=== PATIENT | male | born 1955 | race Caucasian/White ===

== ENCOUNTER 2017-02-04 22:06 | Emergency (ER) | payer MEDICARE, OTHER ==
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
[~2017-02-04 22:06] MED LIST: ABILIFY PO; ADVIL200 M3 PO; ALBUTEROL MININEB INH; ALL DAY ALLERGY10 M3 PO; ALPRAZOLAM PO; ARIPIPRAZOLE2 MG PO; ATIVAN PO; ATIVAN0.5 M1 PO; AUGMENTIN PO; CENTRUM PO; CLONAZEPAM0.5 MG PO; COGENTIN; COLACE PO; COMBIVENT INH14.7 GM INH; COMBIVENT RESPIM4 GM IH; COMBIVENT U/D3 ML INH; CYMBALTA; CYMBALTA30 MG PO; DOC-Q-LACE100 MG PO; DULOXETINE HCL60 MG PO; FLEXERIL10 MG PO; FOLIC ACID PO; FOLIC ACID1 MG PO; GABAPENTIN600 MG PO; GABAPENTIN800 MG PO; GEODAN; GEODON20 MG PO; HALCION0.125 MG PO; HUMIBID DM1 TAB PO; HYDROCODON-ACE1 EAC4 PO; HYDROCODONE-APA1 T41 PO; HYDROCODONE-APA1 T54 PO; HYDROXYZINE HCL25 M1 PO; IBUPROFEN800 MG PO; KEFLEX250 M1 PO; KLONOPIN1 MG PO; LEVAQUIN PO; LIDODERM30 EA TOP; LISINOPRIL; LISINOPRIL-HCTZ1 T19 PO; LISINOPRIL-HCTZ1 T20 PO; LITHATE20 MG PO; LORTAB 10-5001 EACH PO; LORTAB 5/500 TA1 TA1 PO; LORTAB 7.5-5001 TAB PO; MARINOL5 MG PO; MEDROL DOSEPAK4 MG DOB; MILK OF MAGNESIA PO; MOBIC15 MG PO; MUCINEX DM ER1 EACH PO; NAPROSYN500 MG PO; NAPROXEN PO; NEURONTIN PO; NEURONTIN800 MG PO; NICOTINE TRANSD14 MG EXT; NICOTINE TRANSD21 MG TD; NO MEDICATIONS; NORCO 10/325 TA1 TAB; OXYCONTIN10 MG PO; PANTOPRAZOLE SO20 MG PO; PAXIL PO; PEGASYS; PEGASYS PO; PERCOCET 5-3251 TAB PO; PERCOCET PO; PHENERGAN PO; PLETAL100 M1 PO; PREDNISONE PO; PRISTIQ100 MG PO; PROAIR HFA8.5 GM IH; REQUIP0.25 MG PO; REQUIP0.5 MG PO; REVIA50 MG PO; ROPINIROLE HCL0.5 MG PO; SEROQUEL PO; SPIRIVA18 MCG PO; SYMBICORT IH; SYMBICORT INH; THIAMINE HCL100 MG PO; TRAZODONE PO; WELLBUTRIN; ZANTAC PO; ZESTORETIC 20/11 TAB PO; ZESTRIL5 MG PO; [UNRECOGNIZED DRUG - REMARK]
== END 2017-02-05 00:55 | disposition home or self-care (01) ==
LOC: CED 22:06
DX: S00.33XA Contusion of nose, initial encounter (principal); F31.9 Bipolar disorder, unspecified; Z86.73 Personal history of transient ischemic attack (TIA), and cerebral infarction without residual deficits; F17.210 Nicotine dependence, cigarettes, uncomplicated; Z91.040 Latex allergy status; Z88.8 Allergy status to other drugs, medicaments and biological substances; Y04.0XXA Assault by unarmed brawl or fight, initial encounter; Y92.410 Unspecified street and highway as the place of occurrence of the external cause; F10.10 Alcohol abuse, uncomplicated; Y90.9 Presence of alcohol in blood, level not specified
CPT/HCPCS: 70450; 99284

== ENCOUNTER 2017-04-10 20:15 | Emergency (ER) | payer MEDICARE, OTHER ==
[~2017-04-10] VITALS: Ht 170.2 cm; Wt 67.1 kg
--- NOTE | ~2017-04-10 | MR18 ---
[facility] A Service of [facility] RADIOLOGY TEXT RESULTS PATIENT: GUSTAVO BLAS LOCATION: [facility] : 54 UNIT #: [id number] AGE: [address]: Isma Duron DO SEX: M ORDER DR: [id number] [facility] [address] [place], [place] [address] [id number] E MR#: [id number] Acc #: [id number] NAME: GUSTAVO BALS : 1955 SEX: M STUDY DATE/TIME: 04/10/2017 22:28 UNIT: [facility] ROOM: STUDY DESCRIPTION: MR Brain Wo Contrast Attending Physician: Isma Duron D.O. Ordering Physician: Isma Duron D.O. Primary Care Physician: Primary Care Physician No MRI CENTER REPORT This report is preliminary unless electronic signature is present. EXAM MRI brain without contrast INDICATION Right-sided face and arm numbness today and with loss of balance and slurred speech. Previous history of infarct. PROCEDURE Multiplanar, multisequence MR imaging of the brain without contrast. COMPARISON 04/14/2016 FINDINGS Diffusion weighted imaging shows no evidence for restricted diffusion. There is no abnormal mass effect, extraaxial collection or hydrocephalus. Moderate chronic small vessel ischemic change. Encephalomalacia in the medial right temporal and occipital lobes. Study is motion degraded but intracranial flow voids appear to remain intact. There is chronic opacification of the left maxillary sinus. IMPRESSION 1. No acute findings. 2. Moderate chronic small vessel ischemic change as well as encephalomalacia in the medial right temporal and occipital lobes. 3. Chronic left maxillary sinus opacification. Dictated by... Bryson Gilmore M.D. THIS IS AN ELECTRONICALLY VERIFIED REPORT Bryson Gilmore M.D. at 04/11/2017 10:01 PM YAMILA/annie [facility] A Service of [facility] RADIOLOGY TEXT RESULTS PATIENT: GUSTAVO BLAS LOCATION: [facility] : 54 UNIT #: [id number] AGE: [address]: Isma Duron DO SEX: M ORDER DR: TD: 04/11/2017 09:58 JOB #: [id number] MRI CENTER REPORT Page 1 of 1 COPY
[2017-04-10 22:09] LABS: BASOPHIL# 0.1 X10e3 (0-0.3); BASOPHIL% 1.4 % (0-2.5); EOSINOPHIL# 0.4 X10e3 (0-0.7); EOSINOPHIL% 5.1 % (0.0-7.0); HEMATOCRIT 38.7 % (38.0-50.0); HEMOGLOBIN 12.7 gm/dL (13.0-16.0); LYMPHOCYTE# 2.8 X10e3 (1.0-3.5); LYMPHOCYTE% 34.2 % (17.0-45.0); MEAN CELL VOLUME 98.4 FL (83-96); MEAN CORPUSCULAR HEMOGLOBIN 32.2 PG (28-34); MEAN CORPUSCULAR HGB CONC 32.7 g/dL (30-36); MEAN PLATELET VOLUME 8.8 FL (6.5-11.5); MONOCYTE# 1.1 X10e3 (0-1.0); MONOCYTE% 13.9 % (3.0-12.0); NEUTROPHIL# 3.7 X10e3 (1.5-7.1); NEUTROPHIL% 45.4 % (40-75); PLATELET COUNT 229 X10e3 (140-420); RED BLOOD COUNT 3.93 X10e (3.90-5.60); WHITE BLOOD COUNT 8.1 X10e3 (4.0-10.5)
[2017-04-10 22:10] LABS: DIFF IND NO
[2017-04-10 22:16] LABS: POC - CKMB 1.9 ng/mL (0.0-7.9); POC - TROPONIN <0.05 ng/mL (<=0.05)
[2017-04-10 22:25] LABS: INR 1.1; PARTIAL THROMBOPLASTIN TIME 26.8 SECONDS (23.5-31.3); PROTHROMBIN TIME (PATIENT) 11.4 SECONDS (10.0-11.7)
[2017-04-10 22:31] LABS: ALBUMIN SERUM 3.7 g/dL (3.5-5.0); ALCOHOL BLOOD 140 mg/dL ([, 0]); ALKALINE PHOSPHATASE 93 U/L (32-92); ALT (SGPT) 146 U/L (10-40); AST (SGOT) 156 U/L (10-42); BILIRUBIN, DIRECT 0.2 mg/dL (0.0-0.2); BILIRUBIN,INDIRECT 0.6 mg/dL (0.0-0.9); BILIRUBIN,TOTAL 0.8 mg/dL (0.2-2.0); BLOOD UREA NITROGEN 9 mg/dL (9-23); CALCIUM SERUM 8.8 mg/dL (8.4-10.2); CARBON DIOXIDE 22 mmol/L (22-31); CHLORIDE 107 mmol/L (100-111); CREATININE SERUM 0.6 mg/dL (0.6-1.4); GLUCOSE FASTING 85 mg/dL (70-110); POTASSIUM 3.5 mmol/L (3.5-5.1); PROTEIN TOTAL SERUM 7.8 g/dL (6.0-8.3); SALICYLATE <4.0 mg/dL; SODIUM 137 mmol/L (135-145)
[2017-04-10 22:35] LABS: ACETAMINOPHEN <10 ug/mL
[2017-04-11 01:10] LABS: AMPHETAMINE POS (NEG); BARBITURATES NEG (NEG); BENZODIAZEPINES NEG (NEG); COCAINE NEG (NEG); MARIJUANA POS (NEG); OPIATES NEG (NEG); TRICYCLIC ANTIDEPRESSANTS NEG (NEG); U METHADONE NEG (NEG)
[2017-04-11 01:10] LABS: POC - CKMB 1.5 ng/mL (0.0-7.9); POC - TROPONIN <0.05 ng/mL (<=0.05)
[2017-06-21] MEDS ORDERED: BP MED (00:47)
== END 2017-04-11 05:07 ==
LOC: CED 20:15
PROVIDERS: Emergency Medicine
DX: F10.129 Alcohol abuse with intoxication, unspecified (principal); F15.90 Other stimulant use, unspecified, uncomplicated; J44.9 Chronic obstructive pulmonary disease, unspecified; I73.9 Peripheral vascular disease, unspecified; Z91.040 Latex allergy status; Z88.0 Allergy status to penicillin
CPT/HCPCS: 36415; 70551; 80048; 80076; 80307; 82553; 84484; 85025; 85610; 85730; 99285; G0480

== ENCOUNTER 2017-04-11 02:00 | Inpatient (IN) | payer MEDICARE, OTHER ==
[~2017-04-11] VITALS: Ht 170.2 cm; Wt 71.7 kg
--- NOTE | ~2017-04-11 | DS ---
Unit #: [id number] #: [id number] Patient: GUSTAVO BLAS [id number] [facility] [address] [place] [address] [id number] I MR#: [id number] NAME: GUSTAVO BLAS ROOM: 84 Age: 62 Sex: M Admission Date: 04/11/2017 : 1955 Discharge Date: 04/16/2017 Attending Physician: Eulogio Pittman M.D. Primary Care Physician: Primary Care Physician No DISCHARGE SUMMARY REASON FOR ADMISSION The patient is a 62-year-old white male, admitted to the [facility] unit after he presented to a local emergency room claiming to be suicidal. HOSPITAL COURSE The patient was admitted to the [facility] unit and soon became clear that the patient's threats of suicide related to his state of intoxication noted on admission to the emergency room with the patient having mislead this physician regarding the degree of alcohol use which take place prior to his admission to the hospital. The patient had an uneventful discharge and no psychotropic medications were initiated during his stay in the hospital. By 04/17/2017, the patient's detox was complete. He voiced no suicidal or homicidal ideation and denied any symptoms of confusion which he had claimed earlier. Discharge was ordered. FINAL DIAGNOSES Alcohol use disorder, hypertension, status post cerebrovascular accident. DISPOSITION ON DISCHARGE The patient is discharged on the following medications: Norvasc 5 mg daily for hypertension, Lopressor 25 mg b.i.d. for hypertension. DISCHARGE INSTRUCTIONS No dietary or physical restrictions were placed upon the patient at the time of discharge. FOLLOWUP Followup will take place through the auspices of community mental health and chemical dependency treatment resources. PROGNOSIS The patient's prognosis is considered fair. Dictated by... Eulogio Pittman M.D. CB/agnes TD: 04/16/2017 15:11 JOB #: [id number] Unit #: [id number] #: [id number] Patient: GUSTAVO BLAS DISCHARGE SUMMARY Page 1 of 1 X Eulogio Pittman MD DISCHARGE SUMMARY
--- NOTE | ~2017-04-11 | PN ---
Unit #: [id number] #: [id number] Patient: GUSTAVO BLAS [id number] [facility] [address] [place] [address] [id number] I MR#: [id number] NAME: GUSTAVO BLAS ROOM: P184 Age: 62 Sex: M Admission Date: 04/11/2017 : 1955 Attending Physician: Eulogio Pittman M.D. Admitting Physician: Eulogio Pittman M.D. Primary Care Physician: Primary Care Physician Franca JAQUEZ PROGRESS NOTES DATE 04/13/2017 DISCUSSION The patient seems more unsteady today and is complaining of increasing confusion. We will continue to watch to assure that the patient is not having ongoing symptoms of alcohol withdrawal and possible development of delirium tremens. Dictated by... Eulogio Pittman M.D. CB/fior TD: 04/13/2017 19:59 JOB #: [id number] [facility] PROGRESS NOTES Page 1 of 1 X Eulogio Pittman MD PROGRESS NOTE
--- NOTE | ~2017-04-11 | PA ---
Unit #: [id number] #: [id number] Patient: GUSTAVO BLAS [id number] [facility] [address] [place] [address] [id number] I MR#: [id number] NAME: GUSTAVO BLAS ROOM: P184 Age: 62 Sex: M Admission Date: 04/11/2017 : 1955 Date of Assessment: 04/11/2017 Attending Physician: Eulogio Pittman M.D. Admitting Physician: Eulogio Pittman M.D. Primary Care Physician: Primary Care Physician No PSYCHIATRIC ASSESSMENT IDENTIFYING INFORMATION The patient is a 62-year-old white male admitted to the [address] [place] [address] after he had presented to the local emergency room voicing suicidal ideation. CHIEF COMPLAINT "I thought I was having a stroke." INFORMANT Patient, reliability is fair. HISTORY OF PRESENT ILLNESS The patient is a 62-year-old white male admitted to the [address] [place] [address]. The patient reported to a local hospital stay last evening complaining of severe anxiety and the fear that he was having stroke. The patient claims to this physician that he has recently relapsed on alcohol but states that he had "just 1 wine cooler" yesterday. This statement is being somewhat belied by the fact that the patient's blood alcohol on admission was 0.140. Additionally, the patient's drug screen is positive for amphetamines and cannabis. The patient states that he is living alone. He is presently on no psychotropic medications. He is strongly denying suicidal or homicidal ideation and denies any psychotic symptoms. For more complete history of present illness, please refer to multiple previously dictated notes. PAST PSYCHIATRIC HISTORY Reviewed, no changes. PAST MEDICAL HISTORY Reviewed, no changes. MEDICATION(S) Norvasc, Metoprolol. ALLERGIES Latex, lidocaine. FAMILY HISTORY Reviewed, no changes. SOCIAL HISTORY Reviewed, no changes. MENTAL STATUS EXAMINATION Examination at this time reveals the patient to be a well-developed Unit #: [id number] #: [id number] Patient: GUSTAVO BLAS well-nourished white male appearing stated age. She is in no apparent physical distress at the time of the examination. He is awake, alert, and oriented in all spheres. His mood is euthymic, his affect congruent. Speech is generally well-coherent. There are no gross deficits in memory or cognition noted. Intelligence is judged to be in the average range based on fund of knowledge. The patient is cooperative throughout the interview. He is currently denying suicidal or homicidal ideation or psychotic features. Judgment and insight appear to be reasonably intact. ASSETS AND LIABILITIES The patient's assets are to be assessed. Liabilities: Lack of resources. DIAGNOSTIC IMPRESSION 1. Alcohol use disorder. 2. Methamphetamine use disorder. 3. Cannabis use disorder. 4. Hypertension. TREATMENT PLAN The patient remains hospitalized for safety and stabilization. Routine detoxification protocol for alcohol has been initiated, and suicide precautions remain in place. We will watch the patient for 48 to 72 hours to assure that his suicidal ideation has subsided, and that he is exhibiting no signs of substance withdrawal. ESTIMATED LENGTH OF STAY 3 days. Dictated by... Eulogio Pittman M.D. EDWARD/brian TD: 04/11/2017 14:23 JOB #: [id number] PSYCHIATRIC ASSESSMENT Page 1 of 1 X Eulogio Pittman MD X PSYCHIATRIC ASSESSMENT
--- NOTE | ~2017-04-11 | HP ---
Unit #: [id number] #: [id number] Patient: GUSTAVO BLAS [id number] [place] [address] [id number] I MR#: [id number] NAME: GUSTAVO BLAS. ROOM: P184 Age: 62 Sex: M Admission Date: 04/11/2017 : 1955 Attending Physician: Eulogio Pittman M.D. Admitting Physician: Eulogio Pittman M.D. Primary Care Physician: Primary Care Physician No HISTORY AND PHYSICAL HISTORY OF PRESENT ILLNESS Gustavo is a 62-year-old male admitted on 04/11/2017 to [facility] for detox from alcohol, amphetamines and anxiety. PAST MEDICAL HISTORY 1. COPD. 2. Hepatitis. 3. Chronic back pain. 4. GERD. 5. Hypertension. 6. History of stroke. PAST SURGICAL HISTORY 1. Multiple back surgeries. 2. An I and D of his left great toe. ALLERGIES Latex and lidocaine. SOCIAL HISTORY He is currently single and living alone. He smokes 1 pack of cigarettes daily. Binge alcohol use and denies any illegal drug use. However, his tox was positive for amphetamines and marijuana. FAMILY HISTORY Noncontributory. REVIEW OF SYSTEMS CONSTITUTIONAL: No fever or chills. HEENT: Denies any sore throat, ear pain or runny nose. CARDIOVASCULAR: Denies chest pain, irregular heart rhythm or palpitations. CHEST: Denies shortness of breath or cough. No hemoptysis. GASTROINTESTINAL: Denies nausea, vomiting, diarrhea or chronic constipation. ENDOCRINE: Denies history of increased thirst or urination. No recent significant weight loss or gain. GENITOURINARY: Denies dysuria, frequency, or hematuria. SKIN: Denies any rashes. HEMATOLOGIC: Denies history of increased bleeding or bruising. MUSCULOSKELETAL: Denies any hot, swollen joints. No generalized muscle pain. NEUROLOGIC: Denies problems with vision or speech. No frequent, severe headaches. No numbness, tingling or weakness in any extremities. Denies Unit #: [id number] #: [id number] Patient: GUSTAVO BLSA loss of bladder or bowel control. CURRENT MEDICATIONS 1. Norvasc. 2. Toprol. PHYSICAL EXAMINATION GENERAL: Alert, oriented, in no acute distress. VITAL SIGNS: Blood pressure 113/79, heart rate 87, respirations 16, temperature 97.9. HEIGHT: 5 feet 7. WEIGHT: 158 pounds. SKIN: Warm and dry without rash or lesion. HEENT: Normocephalic. TMs not viewed. Oral and nasal passages clear. Conjunctivae clear. PERRLA. EOMs intact. NECK: Supple without lymphadenopathy or thyromegaly. HEART: Regular rate and rhythm without murmur. LUNGS: Clear. ABDOMEN: Soft, nontender, without masses or hepatosplenomegaly. : Not done. EXTREMITIES: No evidence of cyanosis, clubbing or edema. Moves all without focal deficit. NEUROLOGICAL: Grossly within normal limits. Cranial Nerves: II: Visual bartholomew are intact. III, IV AND : Extraocular movements are intact. Pupils are equal, round and reactive to light. V: Facial sensation is grossly normal. VII: Facial movements and expression are normal. VIII: Auditory acuity grossly intact. IX, X: Uvula is midline. Phonation is normal. XI: Patient shrugs shoulders and turns head normally. XII: Tongue protrudes in the midline. Sensory and Motor Function: Sensory and motor sensation is grossly normal. Motor: moves all extremities well. Coordination: Gait is normal. Deep Tendon Reflexes: Intact. IMPRESSION 1. Psychiatric admission. 2. Chronic back pain. 3. Chronic obstructive pulmonary disease. 4. Hepatitis C. 5. Hypertension. 6. Stroke. 7. Gastroesophageal reflux disease. RECOMMENDATIONS PSYCHIATRIC: Per psychiatrist. MEDICAL: No contraindication to participate in facility's activities. MEDICAL PROGNOSIS Good. MEDICAL CONDITION Stable. Dictated by... Unit #: [id number] #: [id number] Patient: GUSTAVO BLAS A.P.R.N. MJW/fior TD: 04/11/2017 22:16 JOB #: [id number] HISTORY AND PHYSICAL Page 1 of 1 X CHRIS HENDRIX APRN X HISTORY AND PHYSICAL
--- NOTE | ~2017-04-11 | PN ---
Unit #: [id number] #: [id number] Patient: GUSTAVO BLAS [id number] [facility] [address] [place] [address] [id number] I MR#: [id number] NAME: GUSTAVO BLAS ROOM: 84 Age: 62 Sex: M Admission Date: 04/11/2017 : 1955 Attending Physician: Eulogio Pittman M.D. Admitting Physician: Eulogio Pittman M.D. Primary Care Physician: Primary Care Physician Franca JAQUEZ PROGRESS NOTES DATE 04/14/2017 DISCUSSION The patient is abed, resting comfortably today. His detox is essentially complete, and we will look for discharge to take place in the next couple of days. Dictated by... Eulogio Pittman M.D. CB/bzg TD: 04/14/2017 14:39 JOB #: [id number] [facility] PROGRESS NOTES Page 1 of 1 X Eulogio Pittman MD X PROGRESS NOTE
--- NOTE | ~2017-04-11 | PN ---
Unit #: [id number] #: [id number] Patient: GUSTAVO BLAS [id number] [facility] [address] [place] [address] [id number] I MR#: [id number] NAME: GUSTAVO BLAS ROOM: 84 Age: 62 Sex: M Admission Date: 04/11/2017 : 1955 Attending Physician: Eulogio Pittman M.D. Admitting Physician: Eulogio Pittman M.D. Primary Care Physician: Primary Care Physician Franca JAQUEZ PROGRESS NOTES DATE 04/12/2017 DISCUSSION The patient's detox continues uneventfully and he offers no new complaints today. Should he sustain progress, discharge should take place as early as tomorrow provided the patient is not exhibiting any signs or symptoms of alcohol withdrawal at that time. Dictated by... Eulogio Pittman M.D. CB/fior TD: 04/12/2017 15:27 JOB #: [id number] [facility] PROGRESS NOTES Page 1 of 1 X Eulogio Pittman MD PROGRESS NOTE
--- NOTE | ~2017-04-11 | PN ---
Unit #: [id number] #: [id number] Patient: GUSTAVO BLAS [id number] [facility] [address] [place] [address] [id number] MR#: [id number] NAME: GUSTAVO BLAS ROOM: P184 Age: 62 Sex: M Admission Date: 04/11/2017 : 1955 Attending Physician: Eulogio Pittman M.D. Admitting Physician: Eulogio Pittman M.D. Primary Care Physician: Primary Care Physician Franca JAQUEZ PROGRESS NOTES DATE 04/15/2017 DISCUSSION The patient continues to complain of "confusion". I have spoken with the patient regarding the importance of abstinence from alcohol if he wishes for the symptom to resolve and I have told him to expect a.m. discharge. Dictated by... Eulogio Pittman M.D. CB/ness TD: 04/16/2017 01:28 JOB #: [id number] [facility] PROGRESS NOTES Page 1 of 1 X Eulogio Pittman MD PROGRESS NOTE
[2017-04-12 09:42] LABS: BASOPHIL# 0.1 X10e3 (0-0.3); BASOPHIL% 1.2 % (0-2.5); EOSINOPHIL# 0.3 X10e3 (0-0.7); EOSINOPHIL% 4.4 % (0.0-7.0); HEMATOCRIT 39.4 % (38.0-50.0); HEMOGLOBIN 12.9 gm/dL (13.0-16.0); LYMPHOCYTE# 1.9 X10e3 (1.0-3.5); LYMPHOCYTE% 26.6 % (17.0-45.0); MEAN CELL VOLUME 99.2 FL (83-96); MEAN CORPUSCULAR HEMOGLOBIN 32.5 PG (28-34); MEAN CORPUSCULAR HGB CONC 32.7 g/dL (30-36); MEAN PLATELET VOLUME 9.8 FL (6.5-11.5); MONOCYTE# 1.1 X10e3 (0-1.0); MONOCYTE% 14.9 % (3.0-12.0); NEUTROPHIL# 3.7 X10e3 (1.5-7.1); NEUTROPHIL% 52.9 % (40-75); PLATELET COUNT 220 X10e3 (140-420); RED BLOOD COUNT 3.97 X10e (3.90-5.60); RED CELL DISTRIBUTION WIDTH 14.8 % (11.0-15.5); WHITE BLOOD COUNT 7.1 X10e3 (4.0-10.5)
[2017-04-12 09:54] LABS: DIFF IND NO
[2017-04-12 10:03] LABS: ALBUMIN SERUM 3.1 g/dL (3.5-5.0); BILIRUBIN,TOTAL 0.9 mg/dL (0.2-2.0); BUN/CREATININE RATIO 18.33; CREATININE SERUM 0.6 mg/dL (0.6-1.4); POTASSIUM 4.2 mmol/L (3.5-5.1); PROTEIN TOTAL SERUM 6.6 g/dL (6.0-8.3)
[2017-04-13 09:50] LABS: URINE APPEARANCE CLEAR; URINE BILIRUBIN NEG (NEG); URINE BLOOD NEG (NEG); URINE COLOR YELLOW; URINE GLUCOSE NEG (NEG); URINE KETONE NEG (NEG); URINE LEUKOCYTE ESTERASE NEG (NEG); URINE NITRATE NEG (NEG); URINE PH 7.5 (5-8); URINE PROTEIN NEG (NEG)
[2017-04-13 11:20] LABS: AMPHETAMINE NEG (NEG); BARBITURATES NEG (NEG); BENZODIAZEPINES NEG (NEG); COCAINE NEG (NEG); MARIJUANA NEG (NEG); OPIATES NEG (NEG); TRICYCLIC ANTIDEPRESSANTS NEG (NEG); U METHADONE NEG (NEG)
[2017-06-21] MEDS ORDERED: BP MED (00:47)
== END 2017-04-16 15:40 | DRG 897 ==
LOC: P1E 05:26
PROVIDERS: Specialist
PROC: HZ2ZZZZ Detoxification Services for Substance Abuse Treatment (ICD-10-PCS; principal; 2017-04-11)
DX: F10.20 Alcohol dependence, uncomplicated (principal); R45.851 Suicidal ideations; F15.20 Other stimulant dependence, uncomplicated; I10 Essential (primary) hypertension; F12.20 Cannabis dependence, uncomplicated; F17.210 Nicotine dependence, cigarettes, uncomplicated; B19.20 Unspecified viral hepatitis C without hepatic coma; K21.9 Gastro-esophageal reflux disease without esophagitis; Z86.73 Personal history of transient ischemic attack (TIA), and cerebral infarction without residual deficits
CPT/HCPCS: 80053; 80307; 81003; 85025; 86592

== ENCOUNTER 2017-05-05 19:35 | Emergency (ER) | payer MEDICARE, OTHER ==
[~2017-05-05] VITALS: Ht 170.2 cm; Wt 68.0 kg
--- NOTE | ~2017-05-05 | CR150 ---
[facility] A Service of [facility] RADIOLOGY TEXT RESULTS PATIENT: GUSTAVO BLAS LOCATION: [facility] : 54 UNIT #: [id number] AGE: [address]: Lawrence Herndon MD SEX: M ORDER DR: [id number] [facility] [address] [place], [place] [address] [id number] E MR#: [id number] #: [id number] NAME: GUSTAVO BLAS : 1955 SEX: M STUDY DATE/TIME: 05/05/2017 2203 UNIT: [facility] ROOM: STUDY DESCRIPTION: CR Hip Min 2 Views Lt Attending Physician: Lawrence Herndon M.D. Ordering Physician: Bryson Melendez M.D. Primary Care Physician: No Primary Care Physician MEDICAL IMAGING REPORT This report is preliminary unless electronic signature is present EXAM Left hip and pelvis, 05/05 at 2203. INDICATION Left hip pain after a fall today. Hip surgery 3 weeks ago. FINDINGS AP pelvis was obtained in addition to 2 views of the left hip. Comparison made with pelvis film from 04/23/2017. Again seen are changes of lumbosacral spinal fusion. Patient has a left hip arthroplasty. Skin gogo remain in place on the left side. No fracture or malalignment is identified. Incidental note is made of atherosclerotic disease. IMPRESSION No acute abnormalities. Satisfactory appearance of the left hip arthroplasty. Dictated by... Gerald العراقي Jr., M.D. THIS IS AN ELECTRONICALLY VERIFIED REPORT Gerald العراقي Jr., M.D. at 05/07/2017 3:11 AM PAIGE/basilia TD: 05/06/2017 19:35 JOB #: [id number] MEDICAL IMAGING REPORT Page 1 of 1 COPY
[2017-06-21] MEDS ORDERED: BP MED (00:47)
== END 2017-05-06 11:10 ==
LOC: CED 19:35
DX: S70.02XA Contusion of left hip, initial encounter (principal); F10.129 Alcohol abuse with intoxication, unspecified; R45.851 Suicidal ideations; I25.2 Old myocardial infarction; F31.9 Bipolar disorder, unspecified; F17.210 Nicotine dependence, cigarettes, uncomplicated; X58.XXXA Exposure to other specified factors, initial encounter; Y92.69 Other specified industrial and construction area as the place of occurrence of the external cause
CPT/HCPCS: 73502; 99284

== ENCOUNTER 2017-05-06 01:00 | Inpatient (IN) | payer MEDICARE, OTHER ==
[~2017-05-06] VITALS: Ht 170.2 cm; Wt 72.6 kg
--- NOTE | ~2017-05-06 | CO ---
Unit #: [id number] #: [id number] Patient: GUSTAVO BLAS [id number] [facility] [address] [place] [address] [id number] I MR#: [id number] NAME: GUSTAVO BLAS ROOM: P201 Age: 62 Sex: M Admission Date: 05/06/2017 : 1955 Attending Physician: Eulogio Pittman M.D. Primary Care Physician: Primary Care Physician No Consultation Date: 05/06/2017 CONSULTATION REPORT ORDERING PROVIDER Dr. Pittman. REASON FOR CONSULTATION Left hip replacement and rash. SUBJECTIVE The patient reports that about 10 days ago he had a left hip replacement by Dr. Moreland. He was discharged home with a bandage that he has not removed. He reports that there are gogo underneath his bandage. He did report a fall several days ago that brought him to the hospital. He was intoxicated at the time of admission. His hip was x-rayed and noted to be within normal limits. He also has a rash on the left side of the body, he is unsure how it got there. He denies any new soaps or detergents. He has not been sleeping outside. OBJECTIVE SKIN: A maculopapular erythematous rash noted on the left side of the patient's back. Central spots negative. There is a bug bite. Also noted on the lateral aspect of the left hip is an intact dressing. The dressing was not removed for examination. ASSESSMENT 1. Left hip replacement. 2. Rash. PLAN Plan is to start the patient on steroid therapy along with lower doses of naproxen due to his hepatitis C. We will also have him follow up with his orthopedic doctor in the next 2 to 3 days. Dictated by... Lester Dela Cruz/agnes TD: 05/07/2017 15:23 JOB #: [id number] Unit #: [id number] #: [id number] Patient: GUSTAVO BLAS CONSULTATION REPORT Page 1 of 1 X MERLENE RAMIRES APRN CONSULTATION REPORT
--- NOTE | ~2017-05-06 | PN ---
Unit #: [id number] #: [id number] Patient: GUSTAVO BLAS [id number] [facility] [address] [place] [address] [id number] I MR#: [id number] NAME: GUSTAVO BLAS ROOM: P201 Age: 62 Sex: M Admission Date: 05/06/2017 : 1955 Attending Physician: Eulogio Pittman M.D. Admitting Physician: Eulogio Pittman M.D. Primary Care Physician: Primary Care Physician Franca JAQUEZ PROGRESS NOTES DATE 05/08/2017 DISCUSSION The patient is active in the therapeutic milieu. He is requesting "something for sleep." He is also complaining of suicidal ideation, but I have explained to the patient today his ongoing seeming continuous use of alcohol precludes initiation of any antidepressant or other medications at least at this point. Dictated by... Eulogio Pittman M.D. CB/brian TD: 05/08/2017 13:54 JOB #: [id number] [facility] PROGRESS NOTES Page 1 of 1 X Eulogio Pittman MD PROGRESS NOTE
--- NOTE | ~2017-05-06 | DS ---
Unit #: [id number] #: [id number] Patient: GUSTAVO BLAS [id number] [facility] [address] [place] [address] [id number] I MR#: [id number] NAME: GUSTAVO BLAS. ROOM: P201 Age: 62 Sex: M Admission Date: 05/06/2017 : 1955 Discharge Date: 05/09/2017 Attending Physician: Eulogio Pittman M.D. Primary Care Physician: Primary Care Physician No DISCHARGE SUMMARY REASON FOR ADMISSION The patient is a 62-year-old white male, admitted with a recent relapse of alcohol use. HOSPITAL COURSE The patient was admitted to the [address] [place] [address] unit and placed on suicide precautions. He was initially prescribed Naprosyn for postoperative hip pain. This was switched to ibuprofen by the nurse practitioner later on. The patient continued to complain of severe pain in his hip. He exhibited no signs or symptoms of withdrawal and requested discharge from this facility on 05/09/2017. It was so ordered. FINAL DIAGNOSES Alcohol use disorder; dysthymic disorder; hypertension; status post hip replacement. DISPOSITION ON DISCHARGE The patient is discharged on the following medications: Medrol Dosepak daily for tapered steroid dose, Norvasc 5 mg daily for hypertension, Lopressor 25 mg daily for hypertension. DISCHARGE INSTRUCTIONS No dietary or physical restrictions were placed upon the patient at the time of discharge. FOLLOWUP Followup will take place through the auspices of community mental health resources. Dictated by... Eulogio Pittman M.D. CB/franciscol TD: 05/09/2017 13:43 JOB #: [id number] Unit #: [id number] #: [id number] Patient: GUSTAVO BLAS DISCHARGE SUMMARY Page 1 of 1 X Eulogio Pittman MD X DISCHARGE SUMMARY
--- NOTE | ~2017-05-06 | HP ---
Unit #: [id number] #: [id number] Patient: GUSTAVO BLAS [id number] [facility] [address] [place] [address] [id number] I MR#: [id number] NAME: GUSTAVO BLAS ROOM: P201 Age: 62 Sex: M Admission Date: 05/06/2017 : 1955 Attending Physician: Eulogio Pittman M.D. Admitting Physician: Eulogio Pittman M.D. Primary Care Physician: Primary Care Physician No HISTORY AND PHYSICAL HISTORY OF PRESENT ILLNESS The patient is a 62-year-old male, admitted to [address] [place] [address] on 05/06/2017 to detox from alcohol and for suicidal ideations. The patient had a recent admission on 04/11/2017 where a complete history and physical was done. That history has been reviewed, two changes need to be made, the patient had a recent hip replacement about ten days ago on his left hip and he also has a rash on his back. Otherwise, no changes need to be made. Dictated by... Lester Dela Cruz/muriel TD: 05/07/2017 09:52 JOB #: [id number] HISTORY AND PHYSICAL Page 1 of 1 X MERLENE RAMIRES APRN X HISTORY AND PHYSICAL
--- NOTE | ~2017-05-06 | PA ---
Unit #: [id number] #: [id number] Patient: GUSTAVO BLAS [id number] [facility] [address] [place] [address] [id number] MR#: [id number] NAME: GUSTAVO BLAS. ROOM: P201 Age: 62 Sex: M Admission Date: 05/06/2017 : 1955 Date of Assessment: 05/07/2017 Attending Physician: Eulogio Pittman M.D. Admitting Physician: Eulogio Pittman M.D. Primary Care Physician: Primary Care Physician No PSYCHIATRIC ASSESSMENT IDENTIFYING INFORMATION The patient is a 62-year-old white male admitted with a recent relapse of alcohol use. CHIEF COMPLAINT None given. INFORMANT Patient, reliability is fair. HISTORY OF PRESENT ILLNESS The patient is a 62-year-old white male well-known to this physician. He was last discharged from this facility on 04/16/2017. Per the patient's report he recently suffered a fall fracturing his hip necessitating hip replacement. He is now ambulating with a walker. He states that he did spend "three or four days at [facility]" following his discharge from [facility] where his hip replacement took place. The patient reports that after arriving at home following discharge he began drinking heavily once again and therefore came to this facility. He is currently only taking medications for hypertension and is on no prescribed psychotropic medication. He was prescribed hydrocodone post operatively. PAST PSYCHIATRIC HISTORY Reviewed no changes. PAST MEDICAL HISTORY Reviewed, no changes. MEDICATION(S) Norvasc, Metoprolol, hydrocodone. ALLERGIES Latex. FAMILY HISTORY Reviewed, no changes. SOCIAL HISTORY Reviewed, no changes. MENTAL STATUS EXAMINATION Examination at this time reveals the patient to be a well-developed well-nourished white male appearing stated age. She is walking with aid Unit #: [id number] #: [id number] Patient: GUSTAVO BLAS of a walker. He is awake, alert, and oriented in all spheres. His mood is mildly dysphoric. His affect congruent. Speech is generally well-coherent. There are no gross deficits in memory or cognition noted. Intelligence is judged to be in the average range based on fund of knowledge. The patient is cooperative throughout the interview. He is currently reporting positive suicidal. He denies homicidal ideation. He denies any psychotic symptoms. His judgment and insight appear to be at baseline. ASSETS AND LIABILITIES ASSETS: To be assessed. LIABILITIES: Lack of resources. DIAGNOSTIC IMPRESSION 1. Alcohol use disorder. 2. Dysthymic disorder. 3. Hypertension 4. Status post hip replacement. TREATMENT PLAN The patient remains hospitalized for safety and stabilization. Given his extensive substance abuse history I have discontinued hydrocodone and we will instead order the patient use non-steroidal anti-inflammatories for pain management. A routine detoxification protocol is in place. The patient will participate in appropriate ayala and milieu activities with an estimate length of stay in the hospital three to five days. Dictated by... Eulogio Pittman M.D. EDWARD/ness TD: 05/07/2017 20:49 JOB #: [id number] PSYCHIATRIC ASSESSMENT Page 1 of 1 X Eulogio Pittman MD X PSYCHIATRIC ASSESSMENT
[2017-05-07 09:43] LABS: BASOPHIL# 0.1 X10e3 (0-0.3); BASOPHIL% 0.6 % (0-2.5); EOSINOPHIL% 0.3 % (0.0-7.0); HEMATOCRIT 37.7 % (38.0-50.0); HEMOGLOBIN 12.7 gm/dL (13.0-16.0); LYMPHOCYTE# 1.4 X10e3 (1.0-3.5); LYMPHOCYTE% 11.5 % (17.0-45.0); MEAN CELL VOLUME 96.6 FL (83-96); MEAN CORPUSCULAR HEMOGLOBIN 32.6 PG (28-34); MEAN CORPUSCULAR HGB CONC 33.7 g/dL (30-36); MEAN PLATELET VOLUME 8.7 FL (6.5-11.5); MONOCYTE# 0.3 X10e3 (0-1.0); MONOCYTE% 2.1 % (3.0-12.0); NEUTROPHIL# 10.3 X10e3 (1.5-7.1); NEUTROPHIL% 85.5 % (40-75); PLATELET COUNT 376 X10e3 (140-420); RED BLOOD COUNT 3.91 X10e (3.90-5.60); RED CELL DISTRIBUTION WIDTH 14.9 % (11.0-15.5)
[2017-05-07 09:46] LABS: DIFF IND NO
[2017-05-07 09:52] LABS: URINE APPEARANCE CLEAR; URINE BILIRUBIN NEG (NEG); URINE BLOOD NEG (NEG); URINE COLOR YELLOW; URINE GLUCOSE NEG (NEG); URINE KETONE NEG (NEG); URINE LEUKOCYTE ESTERASE NEG (NEG); URINE NITRATE NEG (NEG); URINE PH 8.5 (5-8); URINE PROTEIN NEG (NEG); URINE SPECIFIC GRAVITY 1.013 (1.003-1.035)
[2017-05-07 10:00] LABS: ALBUMIN SERUM 3.3 g/dL (3.5-5.0); BILIRUBIN,TOTAL 0.7 mg/dL (0.2-2.0); CREATININE SERUM 0.5 mg/dL (0.6-1.4); GLOM FILT RATE Estimated 115.4 mL/min (>60); POTASSIUM 4.6 mmol/L (3.5-5.1); PROTEIN TOTAL SERUM 7.6 g/dL (6.0-8.3)
[2017-05-07 10:03] LABS: AMPHETAMINE NEG (NEG); BARBITURATES NEG (NEG); BENZODIAZEPINES POS (NEG); COCAINE NEG (NEG); MARIJUANA NEG (NEG); OPIATES NEG (NEG); TRICYCLIC ANTIDEPRESSANTS NEG (NEG); U METHADONE NEG (NEG)
[2017-06-21] MEDS ORDERED: BP MED (00:47)
== END 2017-05-09 14:21 | disposition home or self-care (01) | DRG 897 ==
LOC: P2S 11:38
PROVIDERS: Specialist
PROC: HZ2ZZZZ Detoxification Services for Substance Abuse Treatment (ICD-10-PCS; principal; 2017-05-07)
DX: F10.10 Alcohol abuse, uncomplicated (principal); I10 Essential (primary) hypertension; F34.1 Dysthymic disorder; Z96.642 Presence of left artificial hip joint; R21 Rash and other nonspecific skin eruption; Z91.040 Latex allergy status
CPT/HCPCS: 80053; 80307; 81003; 85025; 86592

== ENCOUNTER 2017-05-10 18:23 | Emergency (ER) | payer MEDICARE, OTHER ==
[~2017-05-10] VITALS: Ht 170.2 cm; Wt 72.6 kg
--- NOTE | ~2017-05-10 | CR150 ---
[facility] A Service of [facility] & [facility] RADIOLOGY TEXT RESULTS PATIENT: GUSTAVO BLAS LOCATION: [facility] UN[facility] : 54 UNIT #: [id number] AGE: [address]: Stephanie Cerda MD SEX: M ORDER DR: [id number] [facility] [address] [facility] [place], [place] [address] [id number] MR#: [id number] Acc #: [id number] NAME: GUSTAVO BLAS : 1955 SEX: M STUDY DATE/TIME: 05/10/2017 19:22 UNIT: [facility] ROOM: STUDY DESCRIPTION: CR Hip Min 2 Views Lt Attending Physician: Stephanie Cerda M.D. Ordering Physician: Ed Daniel Eason M.D. Primary Care Physician: No Primary Care Physician MEDICAL IMAGING REPORT This report is preliminary unless electronic signature is present EXAM Hip, left, 2 views. HISTORY Trauma. Fall today, has left hip pain. COMMENT Frontal views of the pelvis and a frogleg view of the left hip reviewed. There is a comparison from 05/05/2017. The patient has apparently had a recent left hip arthroplasty and skin gogo are still present. There is also postoperative change of the lower lumbar spine again seen. There is no evidence for acute fracture or a dislocation. Vascular calcifications are present. IMPRESSION Post recent left hip arthroplasty. No acute fracture or dislocation. Dictated by... Aubrie Huff M.D. THIS IS AN ELECTRONICALLY VERIFIED REPORT Aubrie Huff M.D. at 05/11/2017 10:23 AM KAUSHAL/basilia TD: 05/11/2017 09:25 JOB #: [id number] MEDICAL IMAGING REPORT Page 1 of 1 COPY
[2017-05-10 20:11] LABS: BASOPHIL# 0.1 X10e3 (0-0.3); BASOPHIL% 0.5 % (0-2.5); EOSINOPHIL# 0.7 X10e3 (0-0.7); EOSINOPHIL% 3.5 % (0.0-7.0); HEMATOCRIT 38.7 % (38.0-50.0); HEMOGLOBIN 12.6 gm/dL (13.0-16.0); LYMPHOCYTE# 3.5 X10e3 (1.0-3.5); LYMPHOCYTE% 17.1 % (17.0-45.0); MEAN CORPUSCULAR HEMOGLOBIN 31.6 PG (28-34); MEAN CORPUSCULAR HGB CONC 32.5 g/dL (30-36); MEAN PLATELET VOLUME 8.4 FL (6.5-11.5); MONOCYTE# 2.5 X10e3 (0-1.0); MONOCYTE% 12.3 % (3.0-12.0); NEUTROPHIL# 13.8 X10e3 (1.5-7.1); NEUTROPHIL% 66.6 % (40-75); PLATELET COUNT 312 X10e3 (140-420); RED BLOOD COUNT 3.99 X10e (3.90-5.60); RED CELL DISTRIBUTION WIDTH 15.5 % (11.0-15.5); WHITE BLOOD COUNT 20.7 X10e3 (4.0-10.5)
[2017-05-10 20:14] LABS: DIFF IND YES
[2017-05-10 20:31] LABS: PLATELET ESTIMATE NORMAL (NORMAL)
[2017-05-10 20:35] LABS: ALBUMIN SERUM 3.5 g/dL (3.5-5.0); ALKALINE PHOSPHATASE 92 U/L (32-92); ALT (SGPT) 120 U/L (10-40); AST (SGOT) 104 U/L (10-42); BILIRUBIN, DIRECT 0.2 mg/dL (0.0-0.2); BILIRUBIN,INDIRECT 0.8 mg/dL (0.0-0.9); BLOOD UREA NITROGEN 9 mg/dL (9-23); CALCIUM SERUM 8.7 mg/dL (8.4-10.2); CARBON DIOXIDE 25 mmol/L (22-31); CHLORIDE 101 mmol/L (100-111); CREATININE SERUM 0.6 mg/dL (0.6-1.4); GLUCOSE FASTING 104 mg/dL (70-110); POTASSIUM 3.8 mmol/L (3.5-5.1); PROTEIN TOTAL SERUM 7.7 g/dL (6.0-8.3); SALICYLATE <4.0 mg/dL; SODIUM 138 mmol/L (135-145)
[2017-05-10 20:36] LABS: ACETAMINOPHEN <10 ug/mL
[2017-05-10 20:37] LABS: ALCOHOL BLOOD 152 mg/dL ([, 0])
[2017-05-10 21:25] LABS: AMPHETAMINE NEG (NEG); BARBITURATES NEG (NEG); BENZODIAZEPINES POS (NEG); COCAINE NEG (NEG); MARIJUANA NEG (NEG); OPIATES NEG (NEG); TRICYCLIC ANTIDEPRESSANTS NEG (NEG); U METHADONE NEG (NEG)
[2017-06-21] MEDS ORDERED: BP MED (00:47)
== END 2017-05-11 01:03 ==
LOC: CED 18:23
PROVIDERS: Emergency Medicine
DX: F10.20 Alcohol dependence, uncomplicated (principal); R45.851 Suicidal ideations; I25.2 Old myocardial infarction; J44.9 Chronic obstructive pulmonary disease, unspecified; B15.9 Hepatitis A without hepatic coma; B19.20 Unspecified viral hepatitis C without hepatic coma; B19.10 Unspecified viral hepatitis B without hepatic coma; F17.210 Nicotine dependence, cigarettes, uncomplicated; Z91.040 Latex allergy status; Z88.8 Allergy status to other drugs, medicaments and biological substances; Y90.6 Blood alcohol level of 120-199 mg/100 ml
CPT/HCPCS: 36415; 73502; 80048; 80076; 80307; 85025; 99285; G0480

== ENCOUNTER 2017-05-10 22:00 | Inpatient (IN) | payer MEDICARE, OTHER ==
[~2017-05-10] VITALS: Ht 170.2 cm; Wt 68.0 kg
--- NOTE | ~2017-05-10 | PN ---
Unit #: [id number] #: [id number] Patient: GUSTAVO BLAS [id number] [facility] [address] [place] [address] [id number] I MR#: [id number] NAME: GUSTAVO BLAS ROOM: 31 Age: 62 Sex: M Admission Date: 05/11/2017 : 1955 Attending Physician: Eulogio Pittman M.D. Admitting Physician: Eulogio Pittman M.D. Primary Care Physician: Primary Care Physician Franca JAQUEZ PROGRESS NOTES DATE 05/12/2017 DISCUSSION The patient continues to complain of some hip pain and continues to endorse positive suicidal ideation during today's interview. All the while appearing quite euthymic in his interactions with peers and staff. We continue current treatment. Dictated by... Eulogio Pittman M.D. CB/fior TD: 05/12/2017 14:16 JOB #: [id number] [facility] PROGRESS NOTES Page 1 of 1 X Eulogio Pittman MD PROGRESS NOTE
--- NOTE | ~2017-05-10 | PA ---
Unit #: [id number] #: [id number] Patient: GUSTAVO BLAS [id number] [facility] [address] [place] [address] [id number] I MR#: [id number] NAME: GUSTAVO BLAS. ROOM: [facility] Age: 62 Sex: M Admission Date: 05/11/2017 : 1955 Date of Assessment: 05/11/2017 Attending Physician: Eulogio Pittman M.D. Admitting Physician: Eulogio Pittman M.D. Primary Care Physician: Primary Care Physician No PSYCHIATRIC ASSESSMENT IDENTIFYING INFORMATION The patient is a 62-year-old white male admitted after presenting to [facility] claiming to be suicidal. INFORMANT(S) Patient. RELIABILITY Poor. CHIEF COMPLAINT Suicidal thoughts. HISTORY OF PRESENT ILLNESS The patient is a 62-year-old white male just discharged from this facility on 05/09/2017. The patient returned to [facility] last evening claiming to be suicidal with plan to walk into traffic. He continues to claim suicidal ideation when seen during today's evaluation. The patient's blood alcohol on admission to [facility] admission was .152. For a more complete history of present illness, please refer to previous dictated notes. PAST PSYCHIATRIC HISTORY Reviewed, no changes. FAMILY HISTORY/SOCIAL HISTORY Reviewed, no changes. MEDICAL HISTORY No changes. MEDICATION HISTORY 1. Norvasc. 2. Metoprolol. ALLERGIES Latex. MENTAL STATUS EXAM At this time, reveals the patient to be a well-developed, well-nourished white male appearing his stated age. He is in no apparent physical distress at the time of the examination. He is awake, alert and oriented in all spheres. His mood is mildly dysphoric. His affect constricted. Unit #: [id number] #: [id number] Patient: GUSTAVO BLAS Speech is generally relevant and coherent. There are no gross deficits in memory or cognition noted. Intelligence is judged to be in the average range based on fund of knowledge. The patient is cooperative throughout the interview. He is currently endorsing positive suicidal ideation. He denies homicidal ideation. He denies any psychotic symptoms. His judgement and insight appear to be at baseline. ASSETS AND LIABILITIES Patient's assets to be assessed. Liabilities, lack of resources. DIAGNOSTIC IMPRESSION 1. Alcohol use disorder. 2. Dysthymic disorder. PSYCHIATRIC PLAN/TREATMENT GOALS The patient remains hospitalized for safety and stabilization. Routine detoxification protocol for alcohol has been initiated. We will continue previously prescribed medications. ESTIMATED LENGTH OF STAY Three to five days. Dictated by... Eulogio Pittman M.D. EDWARD/fior TD: 05/11/2017 15:04 JOB #: [id number] PSYCHIATRIC ASSESSMENT Page 1 of 1 X Eulogio Pittman MD X PSYCHIATRIC ASSESSMENT
--- NOTE | ~2017-05-10 | PN ---
Unit #: [id number] #: [id number] Patient: GUSTAVO BLAS [id number] [facility] [address] [place] [address] [id number] I MR#: [id number] NAME: GUSTAVO BLAS ROOM: 31 Age: 62 Sex: M Admission Date: 05/11/2017 : 1955 Attending Physician: Eulogio Pittman M.D. Admitting Physician: Eulogio Pittman M.D. Primary Care Physician: Primary Care Physician Franca JAQUEZ PROGRESS NOTES DATE 05/13/2017 DISCUSSION The patient complains of "feeling bad today". He is continuing to endorse positive suicidal ideation and now expresses interest in followup through the auspices of [facility]. I will ask the social media specialist to see him regarding this. Dictated by... Eulogio Pittman M.D. CB/ness TD: 05/13/2017 22:49 JOB #: [id number] [facility] NOTES Page 1 of 1 X Eulogio Pittman MD PROGRESS NOTE
--- NOTE | ~2017-05-10 | HP ---
Unit #: [id number] #: [id number] Patient: GUSTAVO BLAS [id number] [facility] [address] [place] [address] [id number] I MR#: [id number] NAME: GUSTAVO BLAS ROOM: P131 Age: 62 Sex: M Admission Date: 05/11/2017 : 1955 Attending Physician: Eulogio Pittman M.D. Admitting Physician: Eulogio Pittman M.D. Primary Care Physician: Primary Care Physician No HISTORY AND PHYSICAL Gustavo is a 62 year old admitted to [address] [place] [address] because of his continued polysubstance abuse. Patient was seen and H and P dated 04/11/17 and addendum dated 05/07/17 were reviewed. These are current. No changes. Please see H and P dated 04/11/17 and addendum dated 05/07/17. Dictated by... Valeria Antunez P.A.-C. for Melanie Sanchez/fior TD: 05/12/2017 16:48 JOB #: [id number] HISTORY AND PHYSICAL Page 1 of 1 X Valeria Antunez HISTORY AND PHYSICAL
--- NOTE | ~2017-05-10 | DS ---
Unit #: [id number] #: [id number] Patient: GUSTAVO BLAS [id number] [facility] [address] [place] [address] [id number] I MR#: [id number] NAME: GUSTAVO BLAS. ROOM: [facility] Age: 62 Sex: M Admission Date: 05/11/2017 : 1955 Discharge Date: 05/14/2017 Attending Physician: Eulogio Pittman M.D. Primary Care Physician: Primary Care Physician No DISCHARGE SUMMARY REASON FOR ADMISSION The patient is a 62-year-old white male, admitted with recurrent suicidal ideation. HOSPITAL COURSE The patient was admitted to the [address] [place] [address] unit and placed on suicide precautions. This physician had a strong suspicion that the patient was probably here secondary to his wish to obtain pain medication and current difficulty recovering from hip surgery. His detox was an uneventful one and he denied suicidal ideation. By 05/14/2017, the patient was felt to be at or near his psychiatric baseline and discharge was ordered. FINAL DIAGNOSES Alcohol use disorder, dysthymic disorder, status post hip replacement, hypertension. DISPOSITION ON DISCHARGE The patient was discharged on the following medications; Lopressor 25 mg once daily for hypertension, Norvasc 5 mg daily for hypertension. DISCHARGE INSTRUCTIONS No dietary or physical restrictions were placed on the patient at the time of discharge. FOLLOWUP Followup will take place through the auspices of community mental health and chemical dependency treatment resources. PROGNOSIS The patient's prognosis is fair. Dictated by... Eulogio Pittman M.D. CB/franciscol TD: 05/15/2017 02:43 JOB #: [id number] Unit #: [id number] #: [id number] Patient: GUSTAVO BLAS DISCHARGE SUMMARY Page 1 of 1 X Eulogio Pittman MD X DISCHARGE SUMMARY
[2017-06-21] MEDS ORDERED: BP MED (00:47)
== END 2017-05-14 13:45 | disposition home or self-care (01) | DRG 897 ==
LOC: P1S 05-11 01:35
PROC: HZ2ZZZZ Detoxification Services for Substance Abuse Treatment (ICD-10-PCS; principal; 2017-05-11)
DX: F10.10 Alcohol abuse, uncomplicated (principal); R45.851 Suicidal ideations; F34.1 Dysthymic disorder; Z91.040 Latex allergy status; I10 Essential (primary) hypertension; Z96.649 Presence of unspecified artificial hip joint